=== PATIENT | female | born 1955 | race Two or more races ===

== ENCOUNTER 2024-04-29 12:00 | Inpatient (IN) | payer OTHER ==
[~2024-04-29] VITALS: Ht 165.1 cm; Wt 72.6 kg
[2024-04-29 14:01] VITALS: BP 138/75
[2024-04-29] MEDS ORDERED: VERELAN PM100 MG PO (14:06)
[2024-04-29] MEDS ORDERED: ALENDRONATE SOD35 MG PO (14:06)
[2024-04-29] MEDS ORDERED: PROAIR RESPICL90 MCG IH (14:06)
[2024-04-29] MEDS ORDERED: ROSUVASTATIN CA20 MG PO (14:06)
[2024-04-29] MEDS ORDERED: VITAMIN D-40010 MCG PO (14:07)
[2024-04-29] MEDS ORDERED: SYMBICORT 16010.2 GM IH (14:07)
[2024-04-29] MEDS ORDERED: CIDAFLEX TABLE1 EACH PO (14:08)
[2024-05-03] MEDS ORDERED: LIDOCAINE HCL 1%/EPINEPHRINE 20ML VIAL IJ ONE (09:00)
[2024-05-03] MEDS ORDERED: CEFTRIAXONE SODIUM 2,000 MG in 0.9 % SODIUM CHLORIDE 50 ML IV ONE (09:00)
[2024-05-03] MEDS ORDERED: METRONIDAZOLE/SODIUM CHLORIDE 200 ML IV ONE (09:00)
[2024-05-03] MEDS ORDERED: BUPIVACAINE HCL 30 ML VIAL IJ ONE (09:00)
[2024-05-03] MEDS ORDERED: MONTELUKAST SOD10 MG (09:01)
[2024-05-03] MEDS ORDERED: FAMOTIDINE40 MG (09:01)
[2024-05-03] MEDS ORDERED: SUGAMMADEX SODIUM 200 MG/2 ML VIAL IV ONE ×2 (10:30→11:30)
[2024-05-03] MEDS ORDERED: CIPROFLOXACIN IN 5 % DEXTROSE 400 MG/200 ML PIGGYBAG IV SCH (11:10)
[2024-05-03] MEDS ORDERED: TAMSULOSIN HCL 0.4 MG CAP PO SCH (11:11)
[2024-05-03] MEDS ORDERED: LACTOBACILLUS ACIDOPHILUS 1 CAP CAP PO SCH (11:11)
[2024-05-03] MEDS ORDERED: RINGERS SOLUTION,LACTATED 1,000 ML IV SCH (11:15)
[2024-05-03] MEDS ORDERED: OxyCODONE HCL 5 MG TABLET (ROXICODONE) PO PRN (11:15)
[2024-05-03] MEDS ORDERED: ONDANSETRON HCL 2 MG/ML VIAL IV PRN (11:15)
[2024-05-03] MEDS ORDERED: MORPHINE SULFATE 4 MG/ML CARTRIDGE IV PRN (11:15)
[2024-05-03] MEDS ORDERED: ACETAMINOPHEN 500 MG GEL..CAP PO SCH (12:00)
[2024-05-03] MEDS ORDERED: ENALAPRILAT DIHYDRATE 1.25 MG/ML VIAL IV ONE (12:10)
[2024-05-03] MEDS ORDERED: MORPHINE SULFATE 4 MG/ML VIAL IV ONE ×2 (12:10→12:40)
[2024-05-03] MEDS ORDERED: METRONIDAZOLE/SODIUM CHLORIDE 500 MG/100 ML PIGGYBACK IV SCH (13:00)
[2024-05-03] MEDS ORDERED: HYOSCYAMINE SULFATE 0.125 MG TAB.SUBL SL SCH (13:00)
[2024-05-03 14:44] VITALS: BP 138/75; O2SAT 96
[2024-05-03 16:00] VITALS: BP 152/70; O2SAT 99
[2024-05-03] MEDS ORDERED: GABAPENTIN 300 MG CAPSULE PO SCH (17:00)
[2024-05-03] MEDS ORDERED: FAMOTIDINE/PF 20 MG/2 ML VIAL IV PUSH SCH (21:00)
[2024-05-04] VITALS: BP 122/55; O2SAT 98
[2024-05-04 08:30] VITALS: BP 125/73; O2SAT 96
[2024-05-04 09:12] LABS: HEMATOCRIT 37.1 % (36.0-45.00); HEMOGLOBIN 12.6 g/dL (12.0-15.00); MEAN CELL VOLUME 85.9 fL (80.00-100.00); MEAN CORPUSCULAR HEMOGLOBIN 29.1 pg (27.00-32.0); MEAN CORPUSCULAR HGB CONC 33.9 g/dl (32.0-36.0); PLATELET COUNT 202 K/uL (150-450); RED BLOOD COUNT 4.32 M/uL (4.00-6.00); RED CELL DISTRIBUTION WIDTH 13.9 % (11.5-14.5)
[2024-05-04 10:00] LABS: CALCIUM 8.5 mg/dL (8.5-10.1); CREATININE SERUM 0.7 mg/dL (0.55-1.02); GFR 83.46; MAGNESIUM 1.8 mg/dL (1.8-2.4); PHOSPHOROUS 2.2 mg/dL (2.5-4.9); POTASSIUM 3.96 mEq/L (3.5-5.1)
[2024-05-04] MEDS ORDERED: POTASSIUM PHOS,M-BASIC-D-BASIC 15 MM in 0.9 % SODIUM CHLORIDE 250 ML IV NR (10:15)
[2024-05-04] MEDS ORDERED: VERAPAMIL HCL 120 MG TABLET PO NR (12:07)
[2024-05-04 17:00] VITALS: BP 99/61; O2SAT 92
[2024-05-04] MEDS ORDERED: ENOXAPARIN SODIUM 40 MG/0.4 ML SYRINGE SUBCUTANEO SCH (17:00)
[2024-05-04] MEDS ORDERED: PATIENTS OWN MEDICATION (MEDICAMENTO EN PISO) PO SCH (21:00)
[2024-05-05 01:01] VITALS: BP 113/57; O2SAT 95
[2024-05-05] MEDS ORDERED: VERAPAMIL HCL 120 MG TABLET PO SCH (09:00)
[2024-05-05] MEDS ORDERED: ENOXAPARIN SODIUM 40 MG/0.4 ML SYRINGE SUBCUTANEO SCH (09:00)
[2024-05-05 09:29] VITALS: BP 126/71; O2SAT 96
[2024-05-05 15:30] VITALS: BP 113/70; O2SAT 95
[2024-05-05] MEDS ORDERED: PHENOL 177 ML BOTTLE MM ONE (17:45)
[2024-05-06] VITALS: BP 124/67; O2SAT 99
[2024-05-06 09:59] VITALS: BP 141/72; O2SAT 96
[2024-05-06] MEDS ORDERED: HYOSCYAMINE0.125 M1 SL (10:51)
[2024-05-06] MEDS ORDERED: PEPCID20 MG PO (10:52)
[2024-05-06] MEDS ORDERED: TRAM1TAB98 PO (10:52)
[2024-05-06] MEDS ORDERED: INTESTINEX680 M1 PO (10:52)
== END 2024-05-06 11:48 | disposition home or self-care (01) | DRG 330 ==
LOC: O/R 05-03 07:04 → SURH 05-03 12:00
PROVIDERS: ADMIT Surgery; ATTEND Surgery
PROC: 07BB4ZZ Excision of Mesenteric Lymphatic, Percutaneous Endoscopic Approach (ICD-10-PCS; 2024-05-03)
PROC: 8E0W4CZ Robotic Assisted Procedure of Trunk Region, Percutaneous Endoscopic Approach (ICD-10-PCS; 2024-05-03)
PROC: 0DTF4ZZ Resection of Right Large Intestine, Percutaneous Endoscopic Approach (ICD-10-PCS; principal; 2024-05-03 19:00)
DX: C18.0 Malignant neoplasm of cecum (principal); K62.5 Hemorrhage of anus and rectum; R59.0 Localized enlarged lymph nodes
CPT/HCPCS: 38570; 44204; S2900

== ENCOUNTER 2025-04-18 07:00 | Day surgery (SDC) | payer OTHER ==
[~2025-04-18 07:00] MED LIST: ALENDRONATE SOD35 MG PO; CIDAFLEX TABLE1 EACH PO; FAMOTIDINE40 MG; HYOSCYAMINE0.125 M1 SL; INTESTINEX680 M1 PO; MONTELUKAST SOD10 MG; PEPCID20 MG PO; PROAIR RESPICL90 MCG IH; ROSUVASTATIN CA20 MG PO; SYMBICORT 16010.2 GM IH; TRAM1TAB98 PO; VERELAN PM100 MG PO; VITAMIN D-40010 MCG PO
[2025-04-18] MEDS ORDERED: MIDAZOLAM HCL 2 MG/2 ML VIAL IV ONE (10:45)
[2025-04-18] MEDS ORDERED: fentaNYL CITRATE 50 MCG/ML AMPUL IV ONE (10:45)
[2025-04-18] MEDS ORDERED: DIPHENHYDRAMINE HCL 50 MG/ML VIAL 1ML IV ONE (10:45)
== END 2025-04-18 11:45 | disposition home or self-care (01) ==
LOC: AMB-ENDOS 07:00
PROVIDERS: ATTEND Surgery
DX: C18.0 Malignant neoplasm of cecum (principal); K62.5 Hemorrhage of anus and rectum; K63.5 Polyp of colon; Z91.041 Radiographic dye allergy status